=== PATIENT | male | born 1990 | race Caucasian/White ===

== ENCOUNTER 2021-10-23 22:00 | Emergency (ER) | payer BC ==
--- NOTE | 2021-10-24 02:49 | ER ---
Nurse's Notes [facility] Name: Pedro Luis Davis Age: 31 yrs Sex: Male : 1990 Arrival Date: 10/23/2021 Time: 22:07 Bed 14 Private MD: Diagnosis: Coronavirus infection, unspecified Presentation: 10/23 22:12 Chief complaint: Patient states: I took an at home covid test so I wanted to get jb4 checked out. I have cough, nausea, headache, fatigue, and SOB. Coronavirus screen: Client presents with at least one sign or symptom that may indicate coronavirus-19. Standard/surgical mask placed on the client. Provider contacted for isolation considerations. Client reports previous positive COVID test result. Date of collection: October 23, 2021. Ebola Screen: No symptoms or risks identified at this time. Initial Sepsis Screen: Does the patient meet any 2 criteria? No. Patient's initial sepsis screen is negative. Does the patient have a suspected source of infection? No. Patient's initial sepsis screen is negative. Risk Assessment: Do you want to hurt yourself or someone else? Patient reports no desire to harm self or others. Onset of symptoms was October 23, 2021. Transition of care: patient was not received from another setting of care. 22:12 Method Of Arrival: Ambulatory jb4 22:12 Acuity: JOVANNI 3 jb4 Historical: - Allergies: 22:14 No Known Allergies; jb4 - Home Meds: 22:14 None [Active]; jb4 - PMHx: 22:14 None; jb4 - PSHx: 22:14 Tonsillectomy; jb4 - Immunization history:: Adult Immunizations not up to date. - Social history:: Smoking status: Patient denies any tobacco usage or history of. Screenin:58 Abuse screen: Denies threats or abuse. Nutritional screening: No deficits noted. bb Tuberculosis screening: No symptoms or risk factors identified. Fall Risk None identified. Assessment: 23:58 General: Appears in no apparent distress. Behavior is calm, cooperative. Pain: Denies bb pain. Neuro: Level of Consciousness is awake, alert, obeys commands, Oriented to person, place, time, situation. Cardiovascular: Heart tones S1 S2 present Capillary refill < 3 seconds Patient's skin is warm and dry. Respiratory: Airway is patent Respiratory effort is even, unlabored, Respiratory pattern is regular, Breath sounds are clear bilaterally. GI: Abdomen is non-distended, Bowel sounds present X 4 quads. Abd is soft and non tender X 4 quads. Derm: Skin is pink, warm \T\ dry. Musculoskeletal: Circulation, motion, and sensation intact. 10/24 02:28 Reassessment: Patient is alert, oriented x 3, equal unlabored respirations, skin bb warm/dry/pink. pt awaiting discharge by Dr Barker. 02:58 Reassessment: Patient is alert, oriented x 3, equal unlabored respirations, skin bb warm/dry/pink. pt verbalized understanding of and agrees to plan of care discharge instructions given pt ambulated with steady gait to exit. Vital Signs: 10/23 22:12 BP 143 / 92; Pulse 83; Resp 16; Temp 99.0(O); Pulse Ox 96% on R/A; Weight 104.33 kg jb4 (R); Height 5 ft. 8 in. (172.72 cm) (R); Pain 2/10; 23:58 BP 131 / 84; Pulse 83; Resp 16 S; Pulse Ox 100% on R/A; bb 10/24 02:29 BP 129 / 81; Pulse 70; Resp 16 S; Pulse Ox 98% on R/A; bb 02:59 BP 127 / 71; Pulse 69; Resp 16 S; Temp 98.3(O); Pulse Ox 99% ; bb 10/23 22:12 Body Mass Index 34.97 (104.33 kg, 172.72 cm) jb4 ED Course: 10/23 22:07 Patient arrived in ED. bp1 22:14 Triage completed. jb4 22:14 Arm band placed on right wrist. jb4 22:24 Katharina Vasquez FNP-C [facility] kb 22:24 Ramez Barker MD is Attending Physician. kb 23:53 Ramez Barker MD is Attending Physician. 7 23:57 Sue Mckenna, RN is Primary Nurse. bb 23:58 Patient has correct armband on for positive identification. Bed in low position. Call bb light in reach. Side rails up X 1. Pulse ox on. NIBP on. 10/24 02:59 No provider procedures requiring assistance completed. Patient did not have IV access bb during this emergency room visit. Administered Medications: No medications were administered Outcome: 02:48 Discharge ordered by . katherine 03:00 Discharged to home ambulatory. bb 03:00 Condition: stable 03:00 Discharge instructions given to patient, Instructed on discharge instructions, follow up and referral plans. medication usage, Demonstrated understanding of instructions, follow-up care, medications, Prescriptions given X 4. 03:00 Patient left the ED. bb Signatures: Katharina Vasquez, BOXING INSPECTOR-C BOXING INSPECTOR-Sue Pierson, RN RN bb Abran Portillo, LILA RN jb4 Ngoc Moya Maurice, MD MD mh7
--- NOTE | 2021-10-24 02:49 | EDPHYS ---
Physician Documentation [facility] Name: Pedro Luis Davis Age: 31 yrs Sex: Male : 1990 Arrival Date: 10/23/2021 Time: 22:07 Bed 14 Private MD: ED Physician Ramez Barker HPI: 10/23 23:55 This 31 yrs old Male presents to ER via Ambulatory with complaints of Cough, Nausea. [facility] 23:55 The patient or guardian reports cough, that is intermittent, described as mild, with no [facility] sputum, flu symptoms, myalgias. 23:55 Onset: The symptoms/episode began/occurred 4 day(s) ago. 7 23:55 Severity of symptoms: At their worst the symptoms were mild, 2 day(s) ago, in the [facility] emergency department the symptoms have improved, markedly. Modifying factors: The symptoms are alleviated by nothing, the symptoms are aggravated by nothing. Associated signs and symptoms: Pertinent positives: nausea, rhinorrhea, Pertinent negatives: chest pain, diarrhea, ear ache, fever, sore throat, vomiting. States that he had a positive home COVID test but his work sent him to ER to get another test.. Historical: - Allergies: 22:14 No Known Allergies; jb4 - Home Meds: 22:14 None [Active]; jb4 - PMHx: 22:14 None; jb4 - PSHx: 22:14 Tonsillectomy; jb4 - Immunization history:: Adult Immunizations not up to date. - Social history:: Smoking status: Patient denies any tobacco usage or history of. ROS: 23:55 Constitutional: Negative for fever, chills, and weight loss, Eyes: Negative for injury, mh7 pain, redness, and discharge, ENT: Negative for injury, pain, and discharge, Neck: Negative for injury, pain, and swelling, Cardiovascular: Negative for chest pain, palpitations, and edema, Back: Negative for injury and pain, : Negative for injury, bleeding, discharge, and swelling, MS/Extremity: Negative for injury and deformity. 23:55 Skin: Negative for injury, rash, and discoloration, Psych: Negative for depression, anxiety, suicide ideation, homicidal ideation, and hallucinations, Allergy/Immunology: Negative for hives, rash, and allergies, Endocrine: Negative for neck swelling, polydipsia, polyuria, polyphagia, and marked weight changes, Hematologic/Lymphatic: Negative for swollen nodes, abnormal bleeding, and unusual bruising. 23:55 Abdomen/GI: Negative for abdominal pain, vomiting, diarrhea, constipation, abdominal cramps, abdominal distension, anorexia, dysphagia, hematemesis, black/tarry stool, rectal pain, rectal bleeding, bowel incontinence, flatulence. 23:55 Neuro: Negative for dizziness, gait disturbance, hearing loss, loss of consciousness, numbness, seizure activity, speech changes, syncope, near syncope, tingling, tinnitus, tremor, visual changes, weakness. Exam: 23:55 Constitutional: This is a well developed, well nourished patient who is awake, alert, mh7 and in no acute distress. Head/Face: Normocephalic, atraumatic. Eyes: Pupils equal round and reactive to light, extra-ocular motions intact. Lids and lashes normal. Conjunctiva and sclera are non-icteric and not injected. Cornea within normal limits. Periorbital areas with no swelling, redness, or edema. ENT: Nares patent. No nasal discharge, no septal abnormalities noted. Tympanic membranes are normal and external auditory canals are clear. Oropharynx with no redness, swelling, or masses, exudates, or evidence of obstruction, uvula midline. Mucous membranes moist. Neck: Trachea midline, no thyromegaly or masses palpated, and no cervical lymphadenopathy. Supple, full range of motion without nuchal rigidity, or vertebral point tenderness. No Meningismus. Chest/axilla: Normal chest wall appearance and motion. Nontender with no deformity. No lesions are appreciated. Cardiovascular: Regular rate and rhythm with a normal S1 and S2. No gallops, murmurs, or rubs. Normal PMI, no JVD. No pulse deficits. Respiratory: Lungs have equal breath sounds bilaterally, clear to auscultation and percussion. No rales, rhonchi or wheezes noted. No increased work of breathing, no retractions or nasal flaring. Abdomen/GI: Soft, non-tender, with normal bowel sounds. No distension or tympany. No guarding or rebound. No evidence of tenderness throughout. Back: No spinal tenderness. No costovertebral tenderness. Full range of motion. Skin: Warm, dry with normal turgor. Normal color with no rashes, no lesions, and no evidence of cellulitis. MS/ Extremity: Pulses equal, no cyanosis. Neurovascular intact. Full, normal range of motion. Neuro: Awake and alert, GCS 15, oriented to person, place, time, and situation. Cranial nerves II-XII grossly intact. Motor strength 5/5 in all extremities. Sensory grossly intact. Cerebellar exam normal. Normal gait. Psych: Awake, alert, with orientation to person, place and time. Behavior, mood, and affect are within normal limits. Vital Signs: 22:12 BP 143 / 92; Pulse 83; Resp 16; Temp 99.0(O); Pulse Ox 96% on R/A; Weight 104.33 kg jb4 (R); Height 5 ft. 8 in. (172.72 cm) (R); Pain 2/10; 23:58 BP 131 / 84; Pulse 83; Resp 16 S; Pulse Ox 100% on R/A; bb 10/24 02:29 BP 129 / 81; Pulse 70; Resp 16 S; Pulse Ox 98% on R/A; bb 02:59 BP 127 / 71; Pulse 69; Resp 16 S; Temp 98.3(O); Pulse Ox 99% ; bb 10/23 22:12 Body Mass Index 34.97 (104.33 kg, 172.72 cm) jb4 MDM: 02:46 Differential Diagnosis: Upper Respiratory Infection Allergic Rhinitis Viral Syndrome. [facility] Data reviewed: vital signs, nurses notes, lab test result(s), COVID positive. Data interpreted: Pulse oximetry: on room air is 98 %. Interpretation: normal. Counseling: I had a detailed discussion with the patient and/or guardian regarding: the historical points, exam findings, and any diagnostic results supporting the discharge/admit diagnosis, lab results, the need for outpatient follow up, to return to the emergency department if symptoms worsen or persist or if there are any questions or concerns that arise at home. Response to treatment: the patient's symptoms have markedly improved after treatment. Refusal of service: The patient/guardian displays adequate decision making capability and despite a detailed discussion of alternatives, benefits, risks, and consequences refuses: all lab tests, all X-rays. 02:48 Patient medically screened. 7 10/24 00:11 Order name: COVID-19 SARS RT PCR (Document "Date of Onset" if Symptomatic); Complete bb Time: 02:06 Administered Medications: No medications were administered Disposition Summary: 10/24/21 02:48 Discharge Ordered Location: Home [facility] Problem: new [facility] Symptoms: have improved [facility] Condition: Stable [facility] Diagnosis - Coronavirus infection, unspecified [facility] Followup: [facility] - With: Private Physician - When: 1 - 2 days - Reason: Worsening of condition, Recheck today's complaints, Continuance of care, Re-evaluation by your physician Discharge Instructions: - Discharge Summary Sheet [facility] - COVID-19 [facility] - COVID-19 Frequently Asked Questions [facility] - 10 Things You Can Do to Manage Your COVID-19 Symptoms at Home - [place] [id number] - COVID-19: Quarantine vs. Isolation - [place] [id number] Forms: - Medication Reconciliation Form [facility] - Thank You Letter [facility] - Antibiotic Education [facility] - Prescription Opioid Use [facility] Prescriptions: - albuterol sulfate 90 mcg/actuation Inhalation HFA aerosol inhaler - inhale 1 puff by INHALATION route every 6 hours As needed; 1 Inhaler; Refills: [facility] 0, Product Selection Permitted - aspirin 81 mg Oral tablet,chewable - chew 1 tablet by ORAL route once daily; 30 tablet; Refills: 0, Product [facility] Selection Permitted - Tessalon Perles 100 mg Oral Capsule - take 1 capsule by ORAL route every 8 hours As needed; 15 capsule; Refills: 0, [facility] Product Selection Permitted - Zithromax Z-Ar 250 mg Oral Tablet - take 1 tablet by ORAL route as directed for 5 days Day 1 - take two (2) tablets [facility] one time. Day 2, 3, 4 , 5 take one (1) tablet once daily.; 6 tablet; Refills: 0, Product Selection Permitted Signatures: Dispatcher [employer] Abran Peterson RN RN jb4 Ramez Barker MD MD 7
[2021-10-24 03:17] VITALS: BP 127/71; TEMP 98.3; O2SAT 99
== END 2021-10-24 03:00 | disposition home or self-care (01) ==
LOC: ER 22:00
DX: U07.1 COVID-19 (principal)
CPT/HCPCS: 99283; U0003